=== PATIENT | male | born 1960 | race Caucasian/White ===

== ENCOUNTER 2017-12-12 08:17 | Outpatient (CLI) | payer OTHER | END 2017-12-12 08:18 | disposition home or self-care (01) | LOC: CTENTCT 08:17 | PROVIDERS: ATTEND Otolaryngology Plastic Surgery within the Head & Neck | DX: J32.9 Chronic sinusitis, unspecified (principal) | CPT/HCPCS: 70486 ==

== ENCOUNTER 2021-12-27 10:15 | Outpatient (CLI) | payer BC | END 2021-12-27 10:16 | disposition home or self-care (01) | LOC: TBSIIMAG 10:15 | PROVIDERS: ATTEND Neurological Surgery | DX: M51.36 Other intervertebral disc degeneration, lumbar region (principal); M48.061 Spinal stenosis, lumbar region without neurogenic claudication | CPT/HCPCS: 72148 ==